=== PATIENT | male | born 1955 | race Caucasian/White ===

== ENCOUNTER → 2017-04-07 | Outpatient (CLI) | payer MEDICARE ==
[~2017-04-07] MED LIST: GLUCOPHAGE1000 MG PO; KLOR-CON M1010 MEQ PO; LEVEMIR100 UNIT/1 SC; LISINOPRIL10 MG PO; LORTAB 10 MG-3473 ML PO; NORVASC 5 MG TAB5 MG PO; NOVOLOG 10100 UNITS/ SQ; NOVOLOG 10100 UNITS1 SQ
[2017-04-07 11:21] LABS: HEMOGLOBIN 16.2 gm/dl (14.0-17.5); RED BLOOD COUNT 5.45 M/UL (4.20-5.50); WHITE BLOOD COUNT 8.5 K/UL (4.5-11.0)
[2017-04-07 11:51] LABS: BUN/CREATININE RATIO 19 (0-10)
== END ==
LOC: LAB 10:14
PROVIDERS: Family Medicine
DX: Z12.5 Encounter for screening for malignant neoplasm of prostate (principal); E11.65 Type 2 diabetes mellitus with hyperglycemia; E78.5 Hyperlipidemia, unspecified; E55.9 Vitamin D deficiency, unspecified; R53.83 Other fatigue; M19.90 Unspecified osteoarthritis, unspecified site; Z13.89 Encounter for screening for other disorder; Z13.828 Encounter for screening for other musculoskeletal disorder
CPT/HCPCS: 36415; 80053; 80061; 82043; 83036; 84439; 84443; 84550; 84681; 85027; 86039; 86200; 86431; G0103

== ENCOUNTER → 2021-09-17 | Outpatient (CLI) | payer MEDICARE ==
[~2021-09-17] MED LIST changes: +ASPIRIN CHEWABL81 MG PO; +ATORVASTATIN CA20 MG PO; +CARVEDILOL12.5 MG PO; +CLOPIDOGREL75 MG PO; +ELIQUIS 5 MG TAB5 MG PO; +FOLIC ACID 1 MG1 MG PO; +GLUCOPHAGE500 MG PO; +LASIX40 MG PO; +LISINOPRIL5 MG PO; +PROVENTIL HFA6.7 GM INH; +STOOL SOFTENER100 MG PO; +VIBRAMYCIN100 MG PO
== END ==
LOC: HEART 5 09:16
DX: I48.91 Unspecified atrial fibrillation (principal); R07.9 Chest pain, unspecified
CPT/HCPCS: 78452; A9502; J2785

== ENCOUNTER → 2022-04-03 | Outpatient (CLI) | payer MEDICARE | LOC: KOH-I 15:10 | DX: M25.551 Pain in right hip (principal); M25.521 Pain in right elbow; M16.11 Unilateral primary osteoarthritis, right hip | CPT/HCPCS: 72040; 72170; 73080; 73502 ==